=== PATIENT | female | born 1970 | race American Indian/Alaskan Native ===

== ENCOUNTER 2018-05-04 18:31 | Emergency (ER) | payer BC ==
[2018-05-04 19:15] VITALS: O2SAT 98
[2018-05-04] MEDS ORDERED: Sodium Chloride 0.9% 1,000 ML IV ONE (19:39)
--- NOTE | 2018-05-04 19:39 | C.PDOC ---
History Of Present Illness 4Patient presents to the ER with a complaint of right upper quadrant abdominal pain and right flank pain since yesterday that has worsened today. Patient reports the pain worsens with deep inspiration. Patient has had a Hx of kidney stones in the past. He is currently speaking in complete sentences; denies fever , chills, nausea, or vomiting. Time Seen by Provider: 05/04/18 19:38 Chief Complaint (Nursing): Abdominal Pain History Per: Patient History/Exam Limitations: no limitations Onset/Duration Of Symptoms: Days Current Symptoms Are (Timing): Still Present Severity: Moderate Pain Scale Rating Of: 4 Location Of Pain/Discomfort: RUQ Quality Of Discomfort: Unable To Describe Associated Symptoms: denies: Fever, Chills, Nausea, Vomiting Exacerbating Factors: None Alleviating Factors: None Recent travel outside of the [place]: No Abnormal Vaginal Bleeding: No Past Medical History Reviewed: Historical Data, Nursing Documentation, Vital Signs Vital Signs: Last Vital Signs Temp 98 F 05/04/18 19:11 Pulse 76 05/04/18 19:11 Resp 18 05/04/18 19:11 BP 116/77 05/04/18 19:11 Pulse Ox 98 05/04/18 21:17 - Medical History PMH: Kidney Stones Surgical History: Cholecystectomy - [facility] Procedures TU REMOV URETER OBSTRUCT (07/01/13) URETERAL CATHETERIZATION (07/01/13) Family History: States: No Known Family Hx - Social History Hx Tobacco Use: No Hx Alcohol Use: No Hx Substance Use: No - Immunization History Hx Tetanus Toxoid Vaccination: No Hx Influenza Vaccination: No Hx Pneumococcal Vaccination: No Review Of Systems Constitutional: Negative for: Fever, Chills Cardiovascular: Negative for: Chest Pain, Palpitations Respiratory: Negative for: Cough, Shortness of Breath Gastrointestinal: Positive for: Abdominal Pain. Negative for: Nausea, Vomiting Musculoskeletal: Positive for: Back Pain (Right flank) Neurological: Negative for: Weakness, Numbness Physical Exam - Physical Exam Appears: Non-toxic Skin: Warm, Dry Head: Normacephalic Oral Mucosa: Moist Neck: Supple Chest: Symmetrical, No Tenderness Cardiovascular: Rhythm Regular Respiratory: No Rales, No Rhonchi, No Wheezing Gastrointestinal/Abdominal: Soft, Tenderness (RUQ), No Distention, No Guarding, No Rebound Back: CVA Tenderness (Mild right) Extremity: Normal ROM Extremity: Bilateral: Atraumatic Neurological/Psych: Oriented x3 Gait: Steady ED Course And Treatment - Laboratory Results Result Diagrams: 05/04/18 20:01 05/04/18 20:01 ECG: Interpreted By Me, Viewed By Me ECG Rhythm: Sinus Rhythm (71), Nonspecific Changes O2 Sat by Pulse Oximetry: 98 (Room air) Pulse Ox Interpretation: Normal - Radiology CXR: Interpreted by Me, Viewed By Me CXR Interpretation: No: Infiltrates, Fracture, Pnemothorax Progress Note: EKG, blood work, CXR, and urinalysis ordered. IV fluids administered. Reevaluation Time: 23:05 Reassessment Condition: Improved Disposition Counseled Patient/Family Regarding: Studies Performed, Diagnosis, Need For Followup, Rx Given - Disposition Referrals: [facility] [Outside] [facility] [Outside] Disposition: HOME/ ROUTINE Disposition Time: 19:38 Condition: FAIR Additional Instructions: Please return if symptoms recur Prescriptions: Dicyclomine [Dicyclomine HCl] 10 mg PO QID #20 cap Polyethylene Glycol 3350 [Miralax] 17 gm PO DAILY #270 ml Instructions: Constipation, Adult (DC), Acute Abdomen (Belly Pain), Adult (DC) Forms: [employer] (Indian) - Clinical Impression Clinical Impression: Abdominal pain, Constipation - Scribe Statement The provider has reviewed the documentation as recorded by the Scribtawanna Tineo All medical record entries made by the Scribe were at my direction and personally dictated by me. I have reviewed the chart and agree that the record accurately reflects my personal performance of the history, physical exam, medical decision making, and the department course for this patient. I have also personally directed, reviewed, and agree with the discharge instructions and disposition.
[2018-05-04] MEDS ORDERED: Sodium Chloride 0.9% 1,000 ML ONE (20:04)
[2018-05-04 20:11] LABS: BASO % 0.6 % (0.0-2.0); EOS % 0.3 % (0.0-4.0); HEMOGLOBIN 13.2 g/dL (11.0-16.0); LYMPH # 2.1 K/uL (1.0-4.3); LYMPH % 34.6 % (20.0-40.0); MEAN CELL VOLUME 87.2 fL (81.0-99.0); MEAN CORPUSCULAR HEMOGLOBIN 30.3 pg (27.0-31.0); MEAN CORPUSCULAR HGB CONC 34.8 g/dL (33.0-37.0); MEAN PLATELET VOLUME 8.9 fL (7.2-11.7); MONO # 0.4 K/uL (0.0-0.8); NEUT # 3.5 K/uL (1.8-7.0); NEUT % 57.5 % (50.0-75.0); NRBC % 0.1 % (0.0-2.0); RBC 4.33 Mil/uL (3.80-5.20); RED CELL DISTRIBUTION WIDTH 13.7 % (11.5-14.5)
[2018-05-04 20:17] LABS: INR 1.1; PROTHROMBIN TIME 12.4 SECONDS (9.7-12.2)
[2018-05-04 20:19] LABS: HCG,QUALITATIVE URINE NEGATIVE (NEGATIVE)
[2018-05-04 20:22] LABS: ALB/GLOB RATIO 1.3 (1.0-2.1); ALBUMIN 4.1 g/dL (3.5-5.0); ALT/SGPT 28 U/L (9-52); AST/SGOT 20 U/L (14-36); BLOOD UREA NITROGEN 12 mg/dL (7-17); CALCIUM 9.1 mg/dl (8.6-10.4); GFR AFRICAN-AMERICAN > 60; GFR NON-AFRICAN AMERICAN > 60; LIPASE 121 U/L (23-300)
[2018-05-04 20:27] LABS: SQUAMOUS EPITHIAL 21 /hpf (0-5); URINE BILIRUBIN NEGATIVE (NEGATIVE); URINE BLOOD NEGATIVE (NEGATIVE); URINE CLARITY Hazy (Clear); URINE COLOR Yellow (YELLOW); URINE GLUCOSE (UA) NORMAL (Normal); URINE LEUKOCYTE ESTERASE NEG Leu/uL (Negative); URINE PROTEIN NEGATIVE (NEGATIVE)
[2018-05-04 23:32] VITALS: BP 108/71; PULSE 78; RESP 14; TEMP 98.2
--- NOTE | 2018-05-05 08:34 | CT ---
Date of service: 05/04/2018 PROCEDURE: CT Abdomen and Pelvis without intravenous contrast HISTORY: Right flank pain. COMPARISON: None. TECHNIQUE: Multiple contiguous axial images were performed through the abdomen and pelvis without the use of intravenous contrast. Subsequently, sagittal and coronal reformatted images were obtained. Radiation dose: Total exam DLP = 719 mGy-cm. This CT exam was performed using one or more of the following dose reduction techniques: Automated exposure control, adjustment of the mA and/or kV according to patient size, and/or use of iterative reconstruction technique. FINDINGS: LOWER THORAX: Unremarkable. LIVER: Unremarkable. No gross lesion or ductal dilatation. GALLBLADDER AND BILE DUCTS: Prior cholecystectomy. PANCREAS: Unremarkable. No gross lesion or ductal dilatation. SPLEEN: Unremarkable. ADRENALS: Unremarkable. No mass. KIDNEYS AND URETERS: Right kidney: Multiple punctate nonobstructive calculi for example in the upper pole measuring up to 2 millimeters. No gross hydronephrosis. Left Kidney: Multiple scattered calculi for example in the midpole measuring up to 5 millimeters. Fullness of the lower pole left renal collecting system which may represent a peripelvic cyst versus pelvic caliectasis versus additional etiology. Clinical correlation. Correlation with renal ultrasound may be helpful if clinically indicated. VASCULATURE: Unremarkable. No aortic aneurysm. BOWEL: Unremarkable. No obstruction. No gross mural thickening. Moderate fecal retention in the colon. Under distended transverse colon limits evaluation. APPENDIX: Unremarkable. Normal appendix. PERITONEUM: Unremarkable. No free fluid. No free air. LYMPH NODES: Unremarkable. No enlarged lymph nodes. BLADDER: Decompressed urinary bladder. REPRODUCTIVE: Heterogeneous uterus. BONES: No acute fracture. OTHER FINDINGS: None. IMPRESSION: 1. Fecal retention in the colon suggestive for constipation. Under distended transverse colon limits evaluation. Clinical correlation. 2. Bilateral nephrolithiasis. Fullness of the lower pole left renal collecting system which may represent a peripelvic cyst versus pelvic caliectasis versus additional etiology. Clinical correlation. Correlation with renal ultrasound may be helpful if clinically indicated. Additional findings as above. These findings were preliminarily reported at 9:31 p.m. on 05/04/[address] Douglas Medina from [employer].
--- NOTE | 2018-05-06 12:17 | CARD ---
APPROVED REPORT Date of service: 05/04/2018 EKG Measurement Heart [id number] <Conclusion> Normal sinus rhythm Normal ECG
== END 2018-05-04 23:30 | disposition home or self-care (01) ==
LOC: C.ER 18:31 → SUPCPDRO 18:31 → C.ER 23:30
DX: R10.9 Unspecified abdominal pain (principal); K59.00 Constipation, unspecified
CPT/HCPCS: 71046; 74176; 80053; 81001; 83690; 84703; 85025; 85610; 85730; 93005; 96360; 99285; J7030

== ENCOUNTER 2018-08-05 14:11 | Emergency (ER) | payer BC ==
[2018-08-05 14:15] VITALS: BP 132/87; PULSE 72; RESP 20; TEMP 98.7; O2SAT 98
[2018-08-05] MEDS ORDERED: Lidocaine 1% (10 ml) Inj INFIL ONE (14:36)
[2018-08-05] MEDS ORDERED: Lidocaine Hydrochloride 5 ML INJ ONE (14:40)
--- NOTE | 2018-08-05 14:42 | C.PDOC ---
History Of Present Illness 48 y/o female presents to the ER for evaluation of laceration to right leg sustained while she was working at 1 pm today. Patient states that she was using a box toe cementer when it slipped and hit her in the lateral right leg. Patient reports that the bleeding stopped after approximately 5 minutes with pressure. She is not on blood thinners. Denies having fever,chills, decreased ROM in right leg, numbness, and parasthesias. Chief Complaint (Nursing): Abnormal Skin Integrity History Per: Patient History/Exam Limitations: no limitations Onset/Duration Of Symptoms: Hrs Current Symptoms Are (Timing): Still Present Severity: Moderate Past Medical History Reviewed: Historical Data, Nursing Documentation, Vital Signs Vital Signs: Last Vital Signs Temp 98.7 F 08/05/18 14:14 Pulse 72 08/05/18 14:14 Resp 20 08/05/18 14:14 BP 132/87 08/05/18 14:14 Pulse Ox 98 08/05/18 14:14 - Medical History PMH: Kidney Stones Surgical History: Cholecystectomy - [facility] Procedures TU REMOV URETER OBSTRUCT (07/01/13) URETERAL CATHETERIZATION (07/01/13) Family History: States: No Known Family Hx - Social History Hx Tobacco Use: No Hx Alcohol Use: No Hx Substance Use: No - Immunization History Hx Tetanus Toxoid Vaccination: No Hx Influenza Vaccination: No Hx Pneumococcal Vaccination: No Review Of Systems Except As Marked, All Systems Reviewed And Found Negative. Constitutional: Negative for: Fever, Chills Musculoskeletal: Positive for: Leg Pain (right knee at laceration site) Skin: Positive for: Other (laceration to right leg) Neurological: Negative for: Weakness, Numbness Physical Exam - Physical Exam Appears: Non-toxic, No Acute Distress Skin: Normal Color, Warm, Dry, Other (right le.5 cm laceration with clean edges distally to the lateral aspect of knee joint line, no active bleeding) Head: Atraumatic, Normacephalic Eye(s): bilateral: Normal Inspection Nose: Normal Oral Mucosa: Moist Neck: Supple Chest: Symmetrical Cardiovascular: Rhythm Regular Respiratory: Normal Breath Sounds, No Rales, No Rhonchi, No Wheezing Extremity: Normal ROM (RLE), No Tenderness, No Deformity, No Swelling, Other (2cm linear laceration to right lateral knee just distal to patella, no tendon or bone visualized) Extremity: Left: Atraumatic (right leg with laceration, see skin exam), Bilateral: Normal Color And Temperature, Normal ROM Neurological/Psych: Oriented x3, Normal Speech, Normal Cranial Nerves, No Cerebellar Signs, Normal Motor, Normal Sensation Gait: Steady ED Course And Treatment O2 Sat by Pulse Oximetry: 98 (RA) Pulse Ox Interpretation: Normal Procedure: Wound Repair - Time Performed Time Performed: 15:45 - Time Out Time Out: Side verified, Site verified, Patient ID confirmed, Sterile procedures obs. - Consent Obtained Consent obtained: Verbal - Performed by Performed by: Mid-level Provider - Indications Indication(s):: Laceration - Location Location:: Right, Leg Shape:: Linear Dimensions Length cm: 2cm Depth:: Subcutaneous fascia - Anesthetic Technique Anesthetic Technique: Local Local/Regional Anesthetic:: Lidocaine 1% - Debris Debris:: None - Irrigated Irrigated with ml of normal saline: 20 - Complexity Complexity:: Simple (one layer) - Wound repair method Sutures:: # (4), Size (4-0), Type (Nylon), Technique (Simple Interrupted) - Complications Complications: none - Patient tolerated procedure Patient Tolerated Procedure:: Well Medical Decision Making Medical Decision Making: Initial Plan: --X-Ray - Right Knee --Tetanus Vaccination --Laceration Repair, See Note X-Ray- Right Knee Results Date of service: 08/05/2018 PROCEDURE: Right Knee Radiographs. HISTORY: r/o fracture COMPARISON: None. FINDINGS: BONES: Bone alignment and mineralization are normal. There is no acute displaced fracture or bone destruction. JOINTS: Normal. No osteoarthritis. JOINT EFFUSION: There is a small suprapatellar joint effusion. OTHER FINDINGS: None. IMPRESSION: No acute fracture or dislocation. Small suprapatellar joint effusion. Impression: Laceration Plan: Patient has been discharged. Patient has been advised to take Ibuprofen as needed. Patient has been instructed on wound care and told to return for suture removal in 7 days. 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 - Scribe Statement The provider has reviewed the documentation as recorded by the Scribe Daniela Torrez Provider Attestation All medical record entries made by the Sebasibe were at my direction and personally dictated by me. I have reviewed the chart and agree that the record accurately reflects my personal performance of the history, physical exam, medical decision making, and the department course for this patient. I have also personally directed, reviewed, and agree with the discharge instructions and disposition.
[2018-08-05] MEDS ORDERED: Tdap Vaccine 0.5 ml Vial (10-64 yrs) IM ONE ×2 (15:04→15:55)
--- NOTE | 2018-08-05 15:15 | RAD ---
Date of service: 08/05/2018 PROCEDURE: Right Knee Radiographs. HISTORY: r/o fracture COMPARISON: None. FINDINGS: BONES: Bone alignment and mineralization are normal. There is no acute displaced fracture or bone destruction. JOINTS: Normal. No osteoarthritis. JOINT EFFUSION: There is a small suprapatellar joint effusion. OTHER FINDINGS: None. IMPRESSION: No acute fracture or dislocation. Small suprapatellar joint effusion.
[2018-08-05] MEDS ORDERED: Bacitracin Ointment 30 GM TUBE TOP STA (15:55)
[2018-08-05] MEDS ORDERED: Bacitracin 500 Units/gm Oint Foilpak UD ONE (16:00)
== END 2018-08-05 16:23 | disposition home or self-care (01) ==
LOC: C.ER 14:11
DX: S81.011A Laceration without foreign body, right knee, initial encounter (principal); W45.8XXA Other foreign body or object entering through skin, initial encounter